=== PATIENT | male | born 1965 | race Caucasian/White ===

== ENCOUNTER 2021-08-31 11:38 | Emergency (ER) | payer BC, SELFPAY ==
[2021-08-31 12:00] VITALS: BP 113/73; PULSE 82; RESP 18; TEMP 36.1; O2SAT 98; BMI 31.4
--- NOTE | 2021-08-31 13:00 | CRLHL7_ITS ---
For Patients: As a result of the Century Cures Act, medical imaging exams and procedure reports are released immediately into your electronic medical record. You may view this report before your referring provider. If you have questions, please contact your health care provider. INDICATION: History of subdural. Three days right arm weakness. COMPARISON: CT head 07/19/2021. TECHNIQUE: CT of the head without IV contrast. Coronal and sagittal reconstructions. FINDINGS: Interval postoperative changes of right frontoparietal craniotomy for evacuation of the previously seen right subdural hematoma. No significant residual hematoma identified. Slightly increased size of the left-sided subdural hematoma which measures 15 mm in greatest radial diameter today compared to 10 mm previously. The fluid is predominantly isodense, however there appears to be a trace amount of new hyperdensity over the left parietal convexity suggesting acute bleeding (for example series 8, image 73). There is mass effect with effacement of underlying sulci. No midline shift. No other intraparenchymal hemorrhage or evidence of acute infarct. Mild generalized cerebral and cerebellar volume loss with associated ex vacuo dilation of the lateral ventricles. Orbits and extraocular muscles are symmetric. Mild mucosal thickening in the left maxillary sinus. The paranasal sinuses and mastoid air cells are otherwise clear. No acute fracture identified. Soft tissues are unremarkable. IMPRESSION: : 1. Slightly increased size of the left subdural hematoma which now contains a trace amount of hyperdensity suggestive of acute bleeding. There is mass effect on the underlying sulci. No midline shift. 2. Interval right frontoparietal craniotomy with evacuation of the previously seen right subdural hematoma. No significant residual hematoma identified. 3. Findings discussed with Elizabeth Juarez at 2:43 p.m. on 08/31/2021. Please note that all CT scans at this facility use dose modulation, iterative reconstruction, and/or weight-based dosing when appropriate to reduce radiation dose to as low as reasonably achievable. Dictated by Joan Miller MD @ 08/31/2021 2:47:03 PM (Electronically Signed)
--- NOTE | 2021-08-31 13:01 | ED_ITS ---
HPI - Neuro Symptoms/Deficit General Time Seen by Provider: 12:45 Date Seen: 08/31/21 Chief Complaint: Nausea/Vomiting Stated Complaint: Diastolic blood pressure, nausea Time Seen by Provider: 08/31/21 12:45 Source: patient Mode of arrival: ambulatory Limitations: altered mental status (Unclear if this is acute or chronic.) History of Present Illness HPI Narrative: Jacoby is a very pleasant 56-year-old gentleman who is status post bilateral subdural hematoma with craniotomy who comes to the emergency room in [place] for evaluation regarding right arm weakness, concerns regarding elevated blood pressure and headache. Patient has had COVID and today is day 9. Denies any significant shortness of breath or difficulty breathing. He is here today because he has had 3 days of right arm weakness that started abruptly. This weakness is improving. He also has rather halting speech and I am unable to ascertain if this is something secondary to the recent head injury or if this is something new. Patient states he thinks that his speech is slightly worse but is unsure. He denies any pain at this time and has not been experiencing any chest pain. He has not had fever or chills. He did denies neck pain. Patient states that his diastolic blood pressure has been elevated and this is also of concern to him. He spoke with a telephone triage nurse who told him to come to the emergency room for a possible stroke. He initially did not think that he had a stroke. Greater than 6 weeks ago patient fell and at that time head CT was negative. Six days later he was noted to be worsening and at that time he had bilateral subdural hematoma. At [facility] he was hospitalized in the ICU for an extended period and then discharged to a recovery center, to his sister's house and finally he is now home alone. Onset (ago): day(s) Location: speech and right arm Severity: mild Quality: weak Context: sudden onset On Anticoagulants: No Associated symptoms: denies other symptoms Treatments Prior to Arrival: none Related Data Home Medications Medication Instructions Recorded Confirmed citalopram 40 mg tablet mg 08/31/21 clotrimazole 1 % topical cream applic TOPICAL 08/31/21 (Antifungal (clotrimazole)) doxazosin 2 mg tablet mg 08/31/21 hydralazine 10 mg tablet mg 08/31/21 hydrocortisone 2.5 % topical cream applic TOPICAL 08/31/21 lisinopril 10 mg tablet mg 08/31/21 lisinopril 20 mg tablet mg 08/31/21 lorazepam 0.5 mg tablet mg 08/31/21 methocarbamol 500 mg tablet mg 08/31/21 metoprolol succinate 50 mg mg PO 08/31/21 tablet,extended release 24 hr nirmatrelvir 300 mg (150 mg x tab PO 08/31/21 2)-ritonavir 100 mg tablet (EUA) (Paxlovid 300 mg () ondansetron 4 mg disintegrating mg 08/31/21 tablet pantoprazole 40 mg tablet,delayed mg PO 08/31/21 release rosuvastatin 20 mg tablet mg 08/31/21 sennosides 8.6 mg-docusate sodium PO 08/31/21 50 mg tablet (Senna-S) vitamin E (dl, acetate) 180 mg 08/31/21 (400 unit) capsule Allergies Allergy/AdvReac Type Severity Reaction Status Date / Time atorvastatin [From Lipitor] Allergy Muscle Pain Verified 08/31/21 12:09 tamsulosin Allergy Dizziness Verified 08/31/21 12:09 moa Allergy Headache Uncoded 08/31/21 12:09 Review of Systems Status of ROS: Reports: 10 or more systems reviewed and unremarkable except as noted in History and below Const: Denies: fever, chills or fatigue Eyes: Denies: change in vision or blurry vision ENMT: Denies: throat pain, neck pain or difficulty swallowing Cardio: Denies: chest pain, palpitations, swelling of feet/ankles or shortness of breath with exertion Resp: Denies: shortness of breath, cough or wheezing GI: Denies: abdominal pain, vomiting or difficulty swallowing : Denies: painful urination Musculo: Denies: back pain or neck pain Integ/Breast: Denies: rash Neuro: Reports: headache and weakness in extremities (Right arm); Denies: numbness in extremities Psych: Reports: other (History of autism per sister) Endo: Denies: fatigue Allergy/Immuno: Denies: wheezing PFSH PFSH Social History Smoking Status: Never smoker Do you use any of these nicotine containing products: None Second hand tobacco smoke exposure: No How often do you have a drink containing alcohol: never How often do you have six or more drinks on one occasion: Never AUDIT-C Alcohol total score: 0 Non-prescribed substance use: denies use Exam Const: Vital Signs, click to edit/add: Vital Signs - 24 hr 08/31/21 12:00 08/31/21 15:29 08/31/21 17:11 Temperature 97.0 F L 98.3 F Pulse Rate [Right Radial] 82 63 68 Respiratory Rate 18 16 16 Blood Pressure [Ri ght Upper Arm] 113/73 138/73 143/72 H Pulse Oximetry 98 99 100 Documenting provider has reviewed patient's vital signs: yes Common normals: no apparent distress, oriented x3 and alert Exam limitations: other limitations (Rather halting speech. ) General appearance: cooperative, comfortable and well kempt Orientation/consciousness: Yes awake, Yes oriented to person, Yes oriented to place and Yes oriented to time HENMT: Common normals: normocephalic, head/scalp atraumatic (Healing scab noted on right parietal scalp.) and external ears normal Head and scalp: normocephalic and atraumatic (Healing scab noted on right parietal scalp.) Face and sinus: normal facial exam and face symmetric External ear: external ears normal Mouth: oral and palatal mucosa normal, lip normal and tongue normal Other: Tongue is midline. Eye: Common normals: PERRL, EOMs intact bilaterally and conjunctivae normal General eye: normal appearance of both eyes Conjunctiva: conjunctiva(e) normal Pupil: PERRL Other: Initially patient's EOM was compromise going to the right but I did explain what I was trying to do with having him follow my finger and he was able to do EOM fully. No nystagmus in the extremes of view. Peripheral vision intact. Neck & C-Spine: Common normals: full ROM, no lymphadenopathy and supple General: normal visual inspection Resp: Common normals: normal respiratory effort and clear to auscultation bilaterally Effort & inspection: able to speak in complete sentences (But prefers short bullet statements.) Auscultation: clear to auscultation bilaterally Cardio: Common normals: regular rate and regular rhythm Rate: regular rate Rhythm: regular rhythm GI: Common normals: soft to palpation and non-tender Palpation: soft Back & Pelvis: Common normals: no thoracic nor lumbar tenderness Extremity: Common normals: no pedal edema General: normal exam except as noted Neuro: Karma Coma Scale: document GCS findings Karma coma scale eye opening: Spontaneous (4) [place] coma scale verbal response: Orientated (5) [place] coma scale motor response: Obey commands (6) [place] coma scale total score: 15 Common normals: oriented x3, CN's II-XII intact bilaterally, moves all extremities, no focal motor deficits and no sensory deficits noted Sensorium/orientation: awake, alert, oriented to person, oriented to place and oriented to time Coordination/balance: Romberg test negative Speech: abnormal speech (short sentences) Motor exam: strength 5/5 throughout Pupil exam: Normal pupillary reactivity/response: bilateral Psych: Common normals: thought process normal Appearance: well kempt Activity/motor behavior: appropriate eye contact and psychomotor agitation (Mild) Speech: not slurred Thought process: normal thought process Thought content: normal thought content Attention/concentration: attention grossly intact Memory/cognition: memory grossly intact Insight: insight good Judgement: judgment good Skin: Narrative: Healing wound on right parietal scalp. No evidence of erythema or drainage or infection. Course Course Hospital Course: Patient is noted to have halting speech I do speak to his sister Polly who notes that his speech is normal for him. We will check a head CT, CBC, compre hensive panel and urinalysis. Patient has normal blood pressure today is, is not tachycardic and has normal oxygen saturations. Reevaluation(s) Reevaluation #1: Patient continues to be unchanged at this time. I do inform him about the results of the CT that do show a very small amount of new blood within the left subdural hematoma. No evidence of midline shift or infarction at this time. We are attempting to contact neuro surgery at [facility] after having been called back by Neurology. Reevaluation #2: We were unsuccessful at talking to Neurosurgery after paging them x2. I was able to speak with Dr. Rodriguez, [facility] ED physician. She was able to talk to Neurosurgery on-call who is open to transfer to their facility. This would involve overnight admission for watching and a repeat CT in the morning. Although we do not have Neurosurgery here this is something that we could possibly do but will be up to the patient. I do speak to the patient and he is insistent that he go to [facility]. I spoke with his sister Polly who agrees with this transfer by ground ambulance as well. She does note that Jacoby experiences anxiety and depression. In the past he has been suicidal and is currently followed by Psychology as well as his primary MD Dr. Mayes at the [facility]. She states that he has been depressed because his 2 dogs that he had had with his head injury were aged and had to be put down. They have recently gotten him a new puppy. Currently awaiting call back from Dr. Rodriguez at [facility] for accepting physician. Time: 17:57 Reevaluation #3: Per nursing report, patient symptoms seem to be worsening with some increased stuttering and difficulty with word finding. He is certainly more anxious and did tell me that he is quite scared. Reassurance at this time but we are contacting [facility] to expedite this transfer. Time: 18:09 Additional Reevaluation(s): At this time still awaiting [facility] physician acceptance. ED docs were quite busy and thus we attempted to go through hospitalist for acceptance. Hospitalist feels with the change in mental status that this needs to go Patient has had decrease in speech ability. He is having difficulty with word finding. He is still obeying commands and has equal upper extremity strength. He did attempt to eat and vomited this. At this time we have him back in his room. He is calm and does not seem agitated. Pupils continued to be equal round and reactive. 1813: Had the privilege of speaking with Dr. Pruett ED physician at [facility] who accepts this patient in transfer. Patient will be ground ambulance ALS. We have placed an IV. Vital Signs Vital signs: Initial Vital Signs Temperature 97.0 F L 08/31/21 12:00 Temperature Source Temporal Artery Scan 08/31/21 12:00 Pulse Rate 82 08/31/21 12:00 Respiratory Rate 18 08/31/21 12:00 Blood Pressure 113/73 08/31/21 12:00 Blood Pressure Mean 86 08/31/21 12:00 Blood Pressure Position Sitting 08/31/21 12:00 Pulse Oximetry 98 08/31/21 12:00 Oxygen Delivery Method 08/31/21 12:00 Vital Signs Temperature 97.0 F L 08/31/21 12:00 Pulse Rate 82 08/31/21 12:00 Respiratory Rate 18 08/31/21 12:00 Blood Pressure 113/73 08/31/21 12:00 Pulse Oximetry 98 08/31/21 12:00 Temperature 98.3 F 08/31/21 17:11 Pulse Rate 68 08/31/21 17:11 Respiratory Rate 16 08/31/21 17:11 Blood Pressure 143/72 H 08/31/21 17:11 Pulse Oximetry 100 08/31/21 17:11 MDM - Neuro Symptoms/Deficit MDM Narrative Medical decision making narrative: 1. New bleeding into left subdural hematoma-this is very small but patient has complained of a headache and some right arm weakness past 3 days. I do not note any weakness on exam. He has no change in his visual garner or in his speech according to his sister. Awaiting acceptance from [facility] physician for transfer as patient prefers to go to see his Neurosurgery team. 2. Disposition- Lab Data Labs: Lab Results 08/31/21 08/31/21 08/31/21 Range/Units 13:36 13:36 14:54 WBC 6.00 (4.50-11.00) K/uL RBC 4.37 (4.30-5.90) m/uL Hgb 13.7 (13.5-17.5) gm/dL Hct 39.5 (37.0-53.0) % MCV 90 (80-100) fL MCH 31 (26-34) pg MCHC 35 (32-36) gm/dL RDW Coeff of Muna 12.3 (11.5-15.5) % Plt Count 255 (140-440) K/uL Neut % (Auto) 60.9 (42.0-72.0) % Lymph % (Auto) 23.3 (20-44) % [place] % (Auto) 13.8 H (0.0-11.0) % Eos % (Auto) 0.5 (0.0-7.0) % Baso % (Auto) 0.8 (0.0-3.0) % Neut # (Auto) 3.65 (1.7-7.0) K/uL Lymph # (Auto) 1.40 (0.90-2.90) K/uL [place] # (Auto) 0.80 (0.00-0.90) K/UL Eos # (Auto) 0.03 (0.00-0.50) K/uL Baso # (Auto) 0.05 (0.00-0.30) K/uL Abs Immat Gran (auto) 0.04 (0.00-0.30) K/uL Sodium 131 L (135-149) mmol/L Potassium 4.1 (3.6-5.1) mmol/L Chloride 99 (96-114) mmol/L Carbon Dioxide 25 (20-32) mmol/L BUN 8 (7-30) mg/dL Creatinine 0.7 (0.5-1.5) mg/dL Estimated Creat Clear 124.01 Estimated GFR 107 ml/min Glucose 112 (60-115) mg/dL Calcium 9.4 (8.4-10.6) mg/dL Urine Color Yellow (Yellow) Urine Appearance Clear (Clear) Urine pH 7.0 (5.0-8.5) Ur Specific [place] 1.015 (1.000-1.030) Urine Protein Negative (Negative) Urine Glucose (UA) Negative (Negative) Urine Ketones 1+ A (Negative) Urine Blood Negative (Negative) Urine Nitrite Negative (Negative) Urine Bilirubin Negative (Negative) Urine Urobilinogen 0.2 (0.2-1.0) Ur Leukocyte Esterase Negative (Negative) Discharge Plan Discharge Clinical Impression: 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
--- NOTE | 2021-08-31 13:11 | ED.NURSE ---
Spoke with sister Ploly and gave update at [phone]. Will give her a call about 30 minutes prior to discharge.
[2021-08-31 13:41] LABS: Basophils Absolute Auto 0.05 K/uL (0.00-0.30); Basophils Percent Auto 0.8 % (0.0-3.0); Eosinophils Absolute Auto 0.03 K/uL (0.00-0.50); Eosinophils Percent Auto 0.5 % (0.0-7.0); Hematocrit 39.5 % (37.0-53.0); Hemoglobin* 13.7 gm/dL (13.5-17.5); Immature Granulocytes Abs Auto 0.04 K/uL (0.00-0.30); Lymphocytes Percent Auto 23.3 % (20-44); Mean Corpuscular HGB Conc 35 gm/dL (32-36); Mean Corpuscular Hemoglobin 31 pg (26-34); Mean Corpuscular Volume 90 fL (80-100); Monocytes Percent Auto 13.8 % (0.0-11.0); Neutrophils Absolute Auto 3.65 K/uL (1.7-7.0); Neutrophils Percent Auto 60.9 % (42.0-72.0); Platelet Count* 255 K/uL (140-440); RDW Coefficient of Variation % 12.3 % (11.5-15.5); Red Blood Count 4.37 m/uL (4.30-5.90)
[2021-08-31 13:46] LABS: Slide Review Reflex No
[2021-08-31 13:56] LABS: Chloride* 99 mmol/L (96-114); Potassium* 4.1 mmol/L (3.6-5.1); Sodium* 131 mmol/L (135-149)
[2021-08-31 13:59] LABS: Blood Urea Nitrogen* 8 mg/dL (7-30); Carbon Dioxide* 25 mmol/L (20-32); Creatinine* 0.7 mg/dL (0.5-1.5); Est. Creatinine Clearance* 124.01; Estimated Glomerular Filt Rate 107 ml/min
[2021-08-31 14:00] LABS: Calcium* 9.4 mg/dL (8.4-10.6); Glucose* 112 mg/dL (60-115)
[2021-08-31 15:08] LABS: Appearance Urine Clear (Clear); Bilirubin Urine Negative (Negative); Blood Urine Negative (Negative); Color Urine Yellow (Yellow); Glucose Urine Negative (Negative); Ketones Urine 1+ (Negative); Leukocyte Esterase Urine Negative (Negative); Nitrite Urine Negative (Negative); Protein Urine Negative (Negative); Specific Gravity Urine 1.015 (1.000-1.030); Urobilinogen Urine 0.2 (0.2-1.0)
[2021-08-31 15:29] VITALS: BP 138/73; PULSE 63; RESP 16; O2SAT 99
--- NOTE | 2021-08-31 16:09 | ED.NURSE ---
up dated patient on waiting for a neurosurg consult. then will go talk with patient about the findings of the results
[2021-08-31 17:11] VITALS: BP 143/72; PULSE 68; RESP 16; TEMP 36.8; O2SAT 100
--- NOTE | 2021-08-31 18:04 | ED.NURSE ---
Patient having difficulty finding words. Keeps repeating i want to go...I want to go... Is obviously frustrated but unable to communicate need. MD notified of neurologic change.
--- NOTE | 2021-08-31 18:07 | ED.NURSE ---
updated Dr. Juarez in the change with patient having difficulty with word finding and repeating self. patient was vomiting in the food. coughing and taken the food away from patient. started #20 Jelco as a saline lock in the left forearm. Dr. Juarez is talking to patient also. calling [facility] to talk with hospitalist.
--- NOTE | 2021-08-31 19:05 | ED.NURSE ---
Patient moved independently to EMS cart. On gurney patient had episode of emesis. Order for zofran obtained and administered prior to departure.
[2021-08-31] MEDS: ONDANSETRON 2 MG/ML inj 4 MG IVP (19:53)
--- NOTE | 2021-08-31 19:57 | ED.NURSE ---
Called sister Polly and gave update on patient status and transfer time.
== END 2021-08-31 19:05 | disposition short-term general hospital (02) ==
PROVIDERS: Emergency Provider Family Medicine; PCP Family Medicine
DX: S06.5X9D Traumatic subdural hemorrhage with loss of consciousness of unspecified duration, subsequent encounter (principal); R47.02 Dysphasia
CPT/HCPCS: 36415; 70450; 80048; 81003; 85025; 96374; 99284; 99285; J2405

== ENCOUNTER 2021-08-31 19:01 | Outpatient (CLI) | payer BC, SELFPAY | END 2021-08-31 19:02 | disposition home or self-care (01) | LOC: AMB 09-07 20:00 | PROVIDERS: PCP Family Medicine; Visit Provider Emergency Medicine Emergency Medical Services | DX: I61.9 Nontraumatic intracerebral hemorrhage, unspecified (principal); R41.82 Altered mental status, unspecified; R53.1 Weakness | CPT/HCPCS: A0425; A0427 ==

== ENCOUNTER 2022-01-26 13:00 | Outpatient (RCR) | payer BC, SELFPAY | END 2022-02-14 16:52 | disposition home or self-care (01) | PROVIDERS: PCP Family Medicine; Visit Provider Family Medicine | DX: R26.81 Unsteadiness on feet (principal); Z51.89 Encounter for other specified aftercare | CPT/HCPCS: 97110; 97162; 97530 ==

== ENCOUNTER 2022-04-06 02:22 | Outpatient (CLI) | payer BC, SELFPAY | END 2022-04-06 02:23 | disposition home or self-care (01) | PROVIDERS: PCP Family Medicine; Visit Provider Family Medicine | DX: T68.XXXA Hypothermia, initial encounter (principal); X31.XXXA Exposure to excessive natural cold, initial encounter | CPT/HCPCS: A0425; A0427 ==

== ENCOUNTER 2022-04-06 02:40 | Emergency (ER) | payer BC, SELFPAY ==
[2022-04-06 02:49] VITALS: BP 175/101; PULSE 87; RESP 18; TEMP 36.4; O2SAT 98; BMI 39.7
[2022-04-06 02:57] VITALS: BP 175/89; PULSE 82; RESP 16; O2SAT 97; O2SAT 98
[2022-04-06 03:02] VITALS: BP 153/93; PULSE 81; RESP 16; O2SAT 99
[2022-04-06 03:17] VITALS: BP 141/90; PULSE 89; RESP 16; O2SAT 100
[2022-04-06 03:32] VITALS: BP 153/83; PULSE 85; RESP 16; O2SAT 99
--- NOTE | 2022-04-06 05:27 | ED.GENADULT ---
HPI - General Adult General Chief complaint: Fall/Minor Trauma Stated complaint: Cold Exposure Time Seen by Provider: 04/06/22 02:48 History of Present Illness HPI narrative: 56-year-old man presenting to the emergency department via EMS after cold exposure. 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 He had been up to let 1 dog in and the other out I believe and somehow the door got locked behind him. Was wearing a sweatshirt added shorts though he describes this as underwear, socks and slippers. Went over to the neighbor and unfortunately slipped in the driveway injuring his left shoulder and knees in this fall. He has been able to ambulate though without difficulty after scooting on his back down the neighbor strict I see driveway. He did scrape his knees. He notes also that a finger was bleeding he thinks. Does have a history of subdural hematoma requiring evacuation last year. Does not believe he hit his head. There was no loss of consciousness. Not complaining of any neck or back pain. Ultimately ambulated he thinks up to a mile to the [employer] where was able to get help. Later does report that there is some numbness in the distal 3rd 4th and 5th fingers of his left hand. Related Data Home Medications Medication Instructions Recorded Confirmed citalopram 40 mg tablet 40 mg PO DAILY 08/31/21 04/06/22 lisinopril 10 mg tablet 10 mg PO BID 08/31/21 04/06/22 pantoprazole 40 mg tablet,delayed 40 mg PO DAILY 08/31/21 04/06/22 release rosuvastatin 20 mg tablet 20 mg PO HS 08/31/21 04/06/22 gabapentin 100 mg capsule 100 mg PO BID 04/06/22 04/06/22 levetiracetam 750 mg tablet 750 mg PO Q12H 04/06/22 04/06/22 (Keppra) Allergies Allergy/AdvReac Type Severity Reaction Status Date / Time atorvastatin [From Lipitor] Allergy Mild Muscle Pain Verified 04/06/22 03:10 tamsulosin Allergy Mild Dizziness Verified 04/06/22 03:10 aspirin AdvReac Intermediate s/p Verified 04/06/22 03:10 subdural hematoma imipramine AdvReac Mild Headache & Verified 04/06/22 03:10 GERD omeprazole AdvReac Mild Mood Verified 04/06/22 03:10 Distrubances moa Allergy Mild Headache Uncoded 04/06/22 02:53 Review of Systems Status of ROS: Reports: 6 or more systems reviewed and unremarkable except as noted in History and below [facility] Medical History Adjustment disorder with depressed mood Anxiety BPH (benign prostatic hyperplasia) Concussion without loss of consciousness GERD (gastroesophageal reflux disease) Hypertension Mixed hyperlipidemia Obesity CHARAN (obstructive sleep apnea) Palpitations Seizure disorder, focal motor Subacute subdural hematoma Surgical History History of colonoscopy History of craniotomy History of hernia repair History of tonsillectomy History of tympanoplasty Social History Smoking Status: Never smoker Do you use any of these nicotine containing products: None Second hand tobacco smoke exposure: No How often do you have a drink containing alcohol: never How often do you have six or more drinks on one occasion: Never AUDIT-C Alcohol total score: 0 Non-prescribed substance use: denies use Exam Narrative: Exam Narrative: Pleasant of good energy. Cranial nerves 2-12 look to be intact. Affected speech as I recall with prior care of this patient. Head does not look to be acutely traumatic. Postoperative/surgical scar. Neck is supple nontender. Back nontender. He has good range of motion at her shoulders. Did demonstrate some soreness in the upper deltoid on the left and this is reproducible little bit here. Has good strength to resisted internal external rotation about the shoulder. There is no clavicular or AC joint area pain. Neer's is intact and not painful. Most discomfort is with empty can testing. Strength remains. Heart with a regular rate and rhythm. Abdomen is overweight soft and nontender. Moving all extremities really without difficulty. He is well perfused. Both hands are pink/red and increasingly warm. The fingers as mentioned above are little puffy soft redder. There begins to appear a subtle pallor in the pad of the 4th left finger in particular on re-examination. A Band-Aid on the distal left index finger. No active bleeding appreciated. Both knees are with faint erythema anteriorly. No effusion/swelling appreciated. There is an abrasion mild on the anterior right knee with some dried blood distal. No active bleeding. Const: Vital Signs, click to edit/add: Vital Signs - 24 hr 04/06/22 02:49 04/06/22 02:57 04/06/22 02:57 Temperature 97.6 F Pulse Rate 82 Pulse Rate [Right Pulse Oximeter] 87 Respiratory Rate 18 16 Blood Pressure 175/89 H Blood Pressure [Ri ght Upper Arm] 175/101 H Pulse Oximetry 98 98 97 Oxygen Delivery Me thod Room Air 04/06/22 03:02 04/06/22 03:17 04/06/22 03:32 Temperature Pulse Rate 81 89 85 Pulse Rate [Right Pulse Oximeter] Respiratory Rate 16 16 16 Blood Pressure 153/93 H 141/90 H 153/83 H Blood Pressure [Ri ght Upper Arm] Pulse Oximetry 99 100 99 Oxygen Delivery Me thod Documenting provider has reviewed patient's vital signs: yes Course Vital Signs Vital signs: Initial Vital Signs Temperature 97.6 F 04/06/22 02:49 Temperature Source Temporal Artery Scan 04/06/22 02:49 Pulse Rate 87 04/06/22 02:49 Respiratory Rate 18 04/06/22 02:49 Blood Pressure 175/101 H 04/06/22 02:49 Blood Pressure Mean 125 04/06/22 02:49 Blood Pressure Position Supine 04/06/22 02:49 Pulse Oximetry 98 04/06/22 02:49 Oxygen Delivery Method 04/06/22 02:49 Vital Signs Temperature 97.6 F 04/06/22 02:49 Pulse Rate 87 04/06/22 02:49 Respiratory Rate 18 04/06/22 02:49 Blood Pressure 175/101 H 04/06/22 02:49 Pulse Oximetry 98 04/06/22 02:49 Oxygen Delivery Method 04/06/22 02:49 Temperature 97.6 F 04/06/22 02:49 Pulse Rate 85 04/06/22 03:32 Respiratory Rate 16 04/06/22 03:32 Blood Pressure 153/83 H 04/06/22 03:32 Pulse Oximetry 99 04/06/22 03:32 Oxygen Delivery Method 04/06/22 02:49 Medical Decision Making MDM Narrative Medical decision making narrative: Mr. George was shivering on arrival. Temperature though around 98?. Was placed in [employer]. Ultimately requesting departure. Not think that there is any need for imaging given physical exam at this point. I would reassess in 7-10 days particularly the left shoulder if does not seem to be improving. Am most concerned about frostbite, might be more cullen nip at this point, on his hands/fingers. Monitor for blister formation. Medical Records Medical records reviewed: Yes I reviewed the patient's medical records Discharge Plan Discharge Clinical Impression: Frostbite, Exposure to environmental cold, Left shoulder strain Patient Disposition: Home w/ Parent or Adult Condition: Improved Additional Instructions: If these areas that I think are frostbitten do blister, try to leave the blister on so that the skin can heal underneath. Once blister pops you can trim it away and protect with antibiotic ointment and bandages. You might place aloe gel onto these areas a few times daily over the next few days. As far as your shoulder goes, see handout for treatment and exercises. And a minimum I think you strained your shoulder; maybe your supraspinatus muscle. Follow-up in a week if not improving. Prescriptions: No Action citalopram 40 mg tablet 40 mg PO DAILY pantoprazole 40 mg tablet,delayed release (DR/EC) 40 mg PO DAILY lisinopril 10 mg tablet 10 mg PO BID rosuvastatin 20 mg tablet 20 mg PO HS gabapentin 100 mg capsule 100 mg PO BID levetiracetam [Keppra] 750 mg tablet 750 mg PO Q12H Follow Up/Referrals: Usman Mayes MD [Primary Care Provider] - Stand Alone Forms: [employer] Info Instructions
== END 2022-04-06 04:08 | disposition home or self-care (01) ==
PROVIDERS: Emergency Provider Family Medicine; PCP Family Medicine
DX: T33.90XA Superficial frostbite of unspecified sites, initial encounter (principal); S46.912A Strain of unspecified muscle, fascia and tendon at shoulder and upper arm level, left arm, initial encounter; X31.XXXA Exposure to excessive natural cold, initial encounter
CPT/HCPCS: 94761; 99283; 99284

== ENCOUNTER 2022-06-05 15:15 | Outpatient (RCR) | payer BC, SELFPAY | END 2022-09-06 23:59 | disposition home or self-care (01) | PROVIDERS: PCP Family Medicine; Visit Provider Family Medicine | DX: M25.512 Pain in left shoulder (principal); Z51.89 Encounter for other specified aftercare | CPT/HCPCS: 97110; 97140; 97162 ==

== ENCOUNTER 2023-04-17 10:58 | Outpatient (CLI) | payer BC, SELFPAY ==
--- NOTE | 2023-04-17 11:15 | FL_ITS ---
Patient: RANDA PAYNE Facility:?[facility] Patient ID:?[id number] Site Patient ID:?[id number]. Site :?[id number] Study:?XRay-Chest/Abd Left UGI W/AIR (DR REEVES TO READ)-04/17/2023 11:59:53 AM Ordering Physician:CHRISSY Final Report: Technique: Double-contrast upper GI performed after the uneventful administration of effervescent crystals and thick barium followed by thin barium. Fluoroscopy time 1 minute 32 seconds. Indication: Gastroesophageal reflux disease Comparison: None. Findings: Swallowing mechanism: Normal. Esophageal motility: Decreased. Gastroesophageal reflux: Mild spontaneous reflux to the proximal esophagus. Hernia: Small hiatal hernia. Esophagus, stomach and duodenal bulb mucosa: Normal mucosa. No stricture or mass. Impression: Small sliding hiatal hernia with spontaneous reflux and decreased motility. Remainder unremarkable. Dictated by Cesar Reeves MD @ 04/17/2023 12:54:12 PM Signed by:?Csear Reeves MD @04/17/2023 12:54:12 PM (Electronic Signature)
== END 2023-04-17 10:59 | disposition home or self-care (01) ==
LOC: RAD 10:59
PROVIDERS: PCP Family Medicine; Visit Provider Internal Medicine Gastroenterology
DX: K21.9 Gastro-esophageal reflux disease without esophagitis (principal); K44.9 Diaphragmatic hernia without obstruction or gangrene
CPT/HCPCS: 74246

== ENCOUNTER 2023-04-23 14:30 | Outpatient (RCR) | payer BC, SELFPAY | END 2023-06-13 10:41 | disposition home or self-care (01) | PROVIDERS: PCP Family Medicine; Visit Provider Family Medicine | DX: M75.31 Calcific tendinitis of right shoulder (principal); M75.41 Impingement syndrome of right shoulder; M25.511 Pain in right shoulder; G89.29 Other chronic pain; Z74.09 Other reduced mobility; R29.898 Other symptoms and signs involving the musculoskeletal system; Z51.89 Encounter for other specified aftercare | CPT/HCPCS: 97110; 97161 ==

== ENCOUNTER 2023-08-04 09:41 | Emergency (ER) | payer BC, SELFPAY ==
[2023-08-04 09:53] VITALS: BP 144/78; PULSE 78; RESP 18; TEMP 35.9; O2SAT 95; BMI 39.7
--- NOTE | 2023-08-04 10:10 | ED_ITS ---
HPI - Fall General Time Seen by Provider: 10:10 Date Seen: 08/04/23 Chief Complaint: Fall/Minor Trauma Stated Complaint: fall, R shoulder pain Time Seen by Provider: 08/04/23 09:52 Source: patient and RN notes reviewed Mode of arrival: ambulatory Limitations: no limitations History of Present Illness HPI Narrative: This 58-year-old male is coming in with ongoing posterior chest wall in rib pain after a fall. He fell on his ramp going up into the shed while putting his lawn more away. He has a would ramp, was slippery from the recent rain in being wet. He landed more on his right side and back. He does not believe that he hit his head but had a slight headache afterwards. He proceeded to go shopping, noted ongoing right sided chest wall and possible rib pain. He decided to come into the ER to be evaluated. No headache now but there is still pain on that right posterior chest wall. He does not take any aspirin or NSAIDs due to history of a subdural hematoma. Patient had a bilateral subdural hematoma in 2021, sounds as if he had a delayed presentation of his bleed. He ended up at [facility]. Weeks later after he was discharged, had COVID and there was a noted small expansion of 1 of the subdural hematomas. He was transferred back to [facility]. He otherwise is at his baseline, notes no difficulty breathing, no shortness of breath, no significant pain with breathing. No chest pain internally. No abdominal pain. He denies any numbness or tingling in his arms, is able to mobilize his arms although moving the right arm does hurt in the right back and shoulder blade area. complaint: fall Related Data Home Medications ?Medication ?Instructions ?Recorded ?Confirmed citalopram 40 mg tablet 40 mg PO DAILY 08/31/21 01/14/23 lisinopril 10 mg tablet 10 mg PO BID 08/31/21 01/14/23 pantoprazole 40 mg tablet,delayed 40 mg PO DAILY 08/31/21 01/14/23 release rosuvastatin 20 mg tablet 20 mg PO HS 08/31/21 01/14/23 levetiracetam 750 mg tablet 750 mg PO Q12H 04/06/22 01/14/23 (Keppra) rimegepant 75 mg disintegrating mg PO 01/14/23 01/14/23 tablet (Nurtec ODT) Allergies Allergy/AdvReac Type Severity Reaction Status Date / Time atorvastatin [From Lipitor] Allergy Mild Muscle Pain Verified 01/14/23 12:54 tamsulosin Allergy Mild Dizziness Verified 01/14/23 12:54 topiramate [From Topamax] Allergy Verified 01/14/23 12:54 aspirin AdvReac Intermediate s/p Verified 01/14/23 12:54 subdural hematoma imipramine AdvReac Mild Headache & Verified 01/14/23 12:54 GERD omeprazole AdvReac Mild Mood Verified 01/14/23 12:54 Distrubances moa Allergy Mild Headache Uncoded 01/14/23 12:54 Review of Systems Status of ROS: Reports: 6 or more systems reviewed and unremarkable except as noted in History and below [facility] Medical History Hypertension ?I10 - Essential (primary) hypertension (ICD-10) Subacute subdural hematoma ?S06.5XAA - Traumatic subdural hemorrhage with loss of consciousness status unknown, initial encounter (ICD-10) Seizure disorder, focal motor ?G40.109 - Localization-related (focal) (partial) symptomatic epilepsy and epileptic syndromes with simple partial seizures, not intractable, without status epilepticus (ICD-10) Palpitations ?R00.2 - Palpitations (ICD-10) CHARAN (obstructive sleep apnea) ?G47.33 - Obstructive sleep apnea (adult) (pediatric) (ICD-10) Obesity ?E66.9 - Obesity, unspecified (ICD-10) Mixed hyperlipidemia ?E78.2 - Mixed hyperlipidemia (ICD-10) GERD (gastroesophageal reflux disease) ?K21.9 - Gastro-esophageal reflux disease without esophagitis (ICD-10) Concussion without loss of consciousness ?S06.0X0A - Concussion without loss of consciousness, initial encounter (ICD- 10) BPH (benign prostatic hyperplasia) ?N40.0 - Benign prostatic hyperplasia without lower urinary tract symptoms (ICD-10) Anxiety ?F41.9 - Anxiety disorder, unspecified (ICD-10) Adjustment disorder with depressed mood ?F43.21 - Adjustment disorder with depressed mood (ICD-10) Surgical History History of tympanoplasty ?Z98.890 - Other specified postprocedural states (ICD-10) History of tonsillectomy ?Z90.89 - Acquired absence of other organs (ICD-10) History of craniotomy ?Z98.890 - Other specified postprocedural states (ICD-10) History of hernia repair ?Z98.890 - Other specified postprocedural states (ICD-10) ?Z87.19 - Personal history of other diseases of the digestive system (ICD-10) History of colonoscopy ?Z98.890 - Other specified postprocedural states (ICD-10) Social History Smoking Status: Never smoker Do you use any of these nicotine containing products: None Second hand tobacco smoke exposure: No How often do you have a drink containing alcohol: never How often do you have six or more drinks on one occasion: Never AUDIT-C Alcohol total score: 0 Non-prescribed substance use: denies use service: No Exam Const: Vital Signs, click to edit/add: Vital Signs - 24 hr 08/04/23 09:53 Temperature 96.7 F L Pulse Rate [Pulse Oximeter] 78 Respiratory Rate 18 Blood Pressure [Le ft Upper Arm] 144/78 H Pulse Oximetry 95 Oxygen Delivery Me thod Room Air Randa is a 58-year-old male that is ambulatory into the ED of his own accord. He has a bit of an aberrant speech pattern which has been previously described is halting. I do think that describes it quite well. His speech is crisp insists think it but there are pauses in between. He has prior well-healed craniotomy scars but otherwise scalp is without any acute visible traumatic change. Face atraumatic, symmetrical facial function, sclera clear, conjugate gaze, pupils look equal and round. No midline tenderness over his neck or the entirety of his spine. His neck is supple, no adenopathy or masses, no tenderness elsewhere. Lungs are clear, good air entry, no wheezing or crackles, no tachypnea. CV regular rate and rhythm, no murmur, normal S1-S2, no S3-S4. Abdomen is obese but soft. He has no tenderness over his clavicles, AC joint or glenohumeral joint. He can fully mobilize his shoulders, full arc of abduction and normal range of motion at the shoulders. Range of motion of the right shoulder does localize some pain into this right posterior chest wall but not within the shoulder itself. Seems to have normal symmetrical arm sensation and function, no traumatic change noted in the arms. Inspection of his back reveals no traumatic change such as ecchymosis or abrasion. He has some mild tenderness over the inferior aspect of the scapula into that right posterolateral chest wall. There is no crepitus or step-off, note no tissue swelling. Abdomen is obese but nontender. Documenting provider has reviewed patient's vital signs: yes Course Course ED Course: Discussed pain management with patient, he has not taken anything. Will give him Tylenol which is what he typically would take. I have ordered a 1000 mg. We will proceed with a head CT on him given his symptoms right after the fall and he is noted to have traumatic brain injury. Want to ensure no complications bleeding. Will also get chest imaging in with chest x-ray and right rib views. He is currently hemodynamically stable, not hypoxic. Reevaluation(s) Time of Reevaluation #1: 11:14 Reevaluation #1: Reviewed negative CT and x-ray images. Patient is stable, has no further concerns. Will discharge to home. Vital Signs Vital signs: Initial Vital Signs Temperature 96.7 F L 08/04/23 09:53 Temperature Source Temporal Artery Scan 08/04/23 09:53 Pulse Rate 78 08/04/23 09:53 Pulse Rhythm Regular 08/04/23 09:53 Respiratory Rate 18 08/04/23 09:53 Blood Pressure 144/78 H 08/04/23 09:53 Blood Pressure Mean 100 08/04/23 09:53 Blood Pressure Position Supine 08/04/23 09:53 Pulse Oximetry 95 08/04/23 09:53 Oxygen Delivery Method Room Air 08/04/23 09:53 Vital Signs Temperature 96.7 F L 08/04/23 09:53 Pulse Rate 78 08/04/23 09:53 Respiratory Rate 18 08/04/23 09:53 Blood Pressure 144/78 H 08/04/23 09:53 Pulse Oximetry 95 08/04/23 09:53 Oxygen Delivery Method Room Air 08/04/23 09:53 Temperature 96.7 F L 06/16/24 09:53 Pulse Rate 78 08/04/23 09:53 Respiratory Rate 18 08/04/23 09:53 Blood Pressure 144/78 H 08/04/23 09:53 Pulse Oximetry 95 08/04/23 09:53 Oxygen Delivery Method Room Air 08/04/23 09:53 Medications Administered Medications: Discontinued Medications Generic Name Dose Route Start Last Admin Trade Name Erikq PRN Reason Stop Dose Admin Acetaminophen 1,000 mg 08/04/23 10:18 08/04/23 10:25 Acetaminophen 500 Mg Tablet PO 08/04/23 10:19 1,000 mg ONCE ONE Administration MDM - Fall Imaging Data CT scan - head: Attestation: I have reviewed the pertinent imaging results. Radiologist's impression: Patient: RANDA PAYNE Facility:?[facility] Patient ID:?[id number] Site Patient ID:?[id number]. Site :?1965 Study:?CT-Head WITHOUT-08/04/2023 10:40:33 AM Ordering Physician:?Timothy Smith Final Report: Indication: FALL, DAHL, HX SDH Technique: CT of the head without contrast. Coronal and sagittal reformats. Bone and soft tissue windows. Comparison: CT 08/31/2021 Findings: Chronic postop changes of right frontal craniotomy. Complete resolution of the left hemispheric subdural hematoma. No acute intracranial hemorrhage or extra-axial collection. No evidence of acute cortical infarction. No mass effect or midline shift. Mild to moderate parenchymal volume loss, unchanged. There is normal gonzalez and white matter differentiation. The pituitary gland, optic chiasm, pineal gland, and cerebellar tonsils are unremarkable. Partially empty sella. The orbital contents are normal. No calvarial fractures. No lytic or sclerotic osseous lesions within the calvarium or skull base. Scalp and other imaged soft tissue structures are normal. Mastoid air cells are clear. Paranasal sinuses are well aerated. Impression: No acute intracranial abnormality. Complete resolution of the left hemispheric subdural hematoma. Please note that all CT scans at this facility use dose modulation, iterative reconstruction, and/or weight-based dosing when appropriate to reduce radiation dose to as low as reasonably achievable. Dictated by Cesar Browne MD @ 08/04/2023 10:47:40 AM (Electronic Signature) Chest x-ray: Attestation: I have reviewed the pertinent imaging results. My impression: A my preliminary review of these chest images, do not see any acute fracture or acute pathology. Radiologist's impression: Patient: RANDA PAYNE Facility:?[facility] Patient ID:?[id number] Site Patient ID:?[id number]. Site :?1965 Study:?XRay-Chest 2 VIEW RIBS W/ 1V CXR-08/04/2023 10:38:56 AM Ordering Physician:Akbar Smith Final Report: INDICATION: Fell; posterior chest wall pain. COMPARISON: None. TECHNIQUE: Six view study with chest and right rib cage detail. FINDINGS: No fracture involving the right ribcage. No pneumothorax or pleural effusion. Normal size cardiac silhouette. IMPRESSION: Negative chest and right rib cage detail. Dictated by Karrie Dhillon MD @ 08/04/2023 11:11:51 AM (Electronic Signature) Discharge Plan Discharge Clinical Impression: Fall, Acute chest wall pain Patient Disposition: Home, Self-Care Condition: Stable Instructions: Fall Prevention (ED), Chest Wall Pain (ED) Additional Instructions: Can use Tylenol 1000 mg up to 3 times a day as needed for pain control. Can try some ice to your right chest wall. Activity as tolerated. If you are not improving over the next week, do recommend re-evaluation in clinic. If at any point you have severe worsening, develop any difficulty breathing or associated respiratory issues, do recommend return to the ER. Activity Level: Activity as Tolerated Prescriptions: No Action Nurtec ODT 75 mg tablet,disintegrating PO citalopram 40 mg tablet 40 mg PO DAILY pantoprazole 40 mg tablet,delayed release (DR/EC) 40 mg PO DAILY lisinopril 10 mg tablet 10 mg PO BID rosuvastatin 20 mg tablet 20 mg PO HS levetiracetam [Keppra] 750 mg tablet 750 mg PO Q12H Follow Up/Referrals: Usman Mayes MD [Primary Care Provider] - Stand Alone Forms: [employer] Info Instructions
--- NOTE | 2023-08-04 10:18 | CRLHL7_ITS ---
For Patients: As a result of the Cures Act, medical imaging exams and procedure reports are released immediately into your electronic medical record. You may view this report before your referring provider. If you have questions, please contact your health care provider. INDICATION: Fell; posterior chest wall pain. COMPARISON: None. TECHNIQUE: Six view study with chest and right rib cage detail. FINDINGS: No fracture involving the right ribcage. No pneumothorax or pleural effusion. Normal size cardiac silhouette. IMPRESSION: Negative chest and right rib cage detail. Dictated by Karrie Dhillon MD @ 08/04/2023 11:11:51 AM (Electronically Signed)
--- NOTE | 2023-08-04 10:18 | CRLHL7_ITS ---
For Patients: As a result of the Century Cures Act, medical imaging exams and procedure reports are released immediately into your electronic medical record. You may view this report before your referring provider. If you have questions, please contact your health care provider. Indication: FALL, DAHL, HX SDH Technique: CT of the head without contrast. Coronal and sagittal reformats. Bone and soft tissue windows. Comparison: CT 08/31/2021 Findings: Chronic postop changes of right frontal craniotomy. Complete resolution of the left hemispheric subdural hematoma. No acute intracranial hemorrhage or extra-axial collection. No evidence of acute cortical infarction. No mass effect or midline shift. Mild to moderate parenchymal volume loss, unchanged. There is normal gonzalez and white matter differentiation. The pituitary gland, optic chiasm, pineal gland, and cerebellar tonsils are unremarkable. Partially empty sella. The orbital contents are normal. No calvarial fractures. No lytic or sclerotic osseous lesions within the calvarium or skull base. Scalp and other imaged soft tissue structures are normal. Mastoid air cells are clear. Paranasal sinuses are well aerated. Impression: No acute intracranial abnormality. Complete resolution of the left hemispheric subdural hematoma. Please note that all CT scans at this facility use dose modulation, iterative reconstruction, and/or weight-based dosing when appropriate to reduce radiation dose to as low as reasonably achievable. Dictated by Cesar Browne MD @ 08/04/2023 10:47:40 AM (Electronically Signed)
[2023-08-04] MEDS: ACETAMINOPHEN 500 MG TABLET 1000 MG PO (10:25)
== END 2023-08-04 11:23 | disposition home or self-care (01) ==
PROVIDERS: Emergency Provider Family Medicine; PCP Family Medicine
DX: R07.89 Other chest pain (principal); W19.XXXA Unspecified fall, initial encounter
CPT/HCPCS: 70450; 71101; 99283; 99284; 99285; A9270

== ENCOUNTER 2023-12-27 03:05 | Emergency (ER) | payer BC, SELFPAY ==
[2023-12-27 03:15] VITALS: BP 153/93; PULSE 79; RESP 20; TEMP 36.9; O2SAT 99; BMI 40.2
--- NOTE | 2023-12-27 03:23 | ED.GENADULT ---
HPI - General Adult General Chief complaint: Hypertension Stated complaint: high blood pressure Time Seen by Provider: 12/27/23 03:22 History of Present Illness HPI narrative: Patient is a 58-year-old gentleman who has been feeling stressed today. He has history of traumatic brain injury as well as chronic anxiety and depression. He was upset tonight in size take his blood pressure found to be greater than 150/90. Patient took extra lisinopril 5 mg and came immediately to the emergency room with blood pressure currently is 130/90. He has had no chest pain no shortness a breath orthopnea no PND no nausea no vomiting patient is otherwise feeling well with the exception of the increased stress. He is not suicidal or homicidal at this time. Related Data Home Medications ?Medication ?Instructions ?Recorded ?Confirmed citalopram 40 mg tablet 40 mg PO DAILY 08/31/21 11/18/23 lisinopril 10 mg tablet 10 mg PO BID 08/31/21 11/18/23 pantoprazole 40 mg tablet,delayed 40 mg PO DAILY 08/31/21 11/18/23 release rosuvastatin 20 mg tablet 20 mg PO HS 08/31/21 11/18/23 levetiracetam 750 mg tablet 750 mg PO Q12H 04/06/22 11/18/23 (Keppra) rimegepant 75 mg disintegrating mg PO 01/14/23 11/18/23 tablet (Nurtec ODT) Allergies Allergy/AdvReac Type Severity Reaction Status Date / Time atorvastatin (From Lipitor) Allergy Mild Muscle Pain Verified 11/18/23 16:25 tamsulosin Allergy Mild Dizziness Verified 11/18/23 16:25 topiramate (From Topamax) Allergy Verified 11/18/23 16:25 aspirin AdvReac Intermediate s/p Verified 11/18/23 16:25 subdural hematoma imipramine AdvReac Mild Headache & Verified 11/18/23 16:25 GERD omeprazole AdvReac Mild Mood Verified 11/18/23 16:25 Distrubances moa Allergy Mild Headache Uncoded 11/18/23 16:25 Review of Systems Status of ROS: Reports: 10 or more systems reviewed and unremarkable except as noted in History and below [facility] Medical History Hypertension ?I10 - Essential (primary) hypertension (ICD-10) Subacute subdural hematoma ?S06.5XAA - Traumatic subdural hemorrhage with loss of consciousness status unknown, initial encounter (ICD-10) Seizure disorder, focal motor ?G40.109 - Localization-related (focal) (partial) symptomatic epilepsy and epileptic syndromes with simple partial seizures, not intractable, without status epilepticus (ICD-10) Palpitations ?R00.2 - Palpitations (ICD-10) CHARAN (obstructive sleep apnea) ?G47.33 - Obstructive sleep apnea (adult) (pediatric) (ICD-10) Obesity ?E66.9 - Obesity, unspecified (ICD-10) Mixed hyperlipidemia ?E78.2 - Mixed hyperlipidemia (ICD-10) GERD (gastroesophageal reflux disease) ?K21.9 - Gastro-esophageal reflux disease without esophagitis (ICD-10) Concussion without loss of consciousness ?S06.0X0A - Concussion without loss of consciousness, initial encounter (ICD-10) BPH (benign prostatic hyperplasia) ?N40.0 - Benign prostatic hyperplasia without lower urinary tract symptoms (ICD-10) Anxiety ?F41.9 - Anxiety disorder, unspecified (ICD-10) Adjustment disorder with depressed mood ?F43.21 - Adjustment disorder with depressed mood (ICD-10) Surgical History History of tympanoplasty ?Z98.890 - Other specified postprocedural states (ICD-10) History of tonsillectomy ?Z90.89 - Acquired absence of other organs (ICD-10) History of craniotomy ?Z98.890 - Other specified postprocedural states (ICD-10) History of hernia repair ?Z98.890 - Other specified postprocedural states (ICD-10) ?Z87.19 - Personal history of other diseases of the digestive system (ICD-10) History of colonoscopy ?Z98.890 - Other specified postprocedural states (ICD-10) Social History Smoking Status: Never smoker Do you use any of these nicotine containing products: None Second hand tobacco smoke exposure: No How often do you have a drink containing alcohol: never How often do you have six or more drinks on one occasion: Never AUDIT-C Alcohol total score: 0 Non-prescribed substance use: denies use service: No Exam Narrative: Exam Narrative: EXAM GENERAL: Patient appears comfortable and well. EYES: No scleral icterus. ENT: Tympanic membranes and oropharynx normal. THYROID: no thyroid nodules or thyromegaly. LYMPH: No supraclavicular or cervical lymphadenopathy. SKIN: Visible skin seen during exam normal or with benign process only. EXT: No dependent lower extremity pedal edema. HEART: Regular rate and rhythm with no murmurs, rubs, or gallops. LUNGS: Clear to auscultation bilaterally with no crackles or wheezes. ABD: Soft, non tender, non distended. PSYCH: Good eye contact, speech is not pressured. Const: Vital Signs, click to edit/add: Vital Signs - 24 hr 12/27/23 03:15 Temperature 98.5 F Pulse Rate [Right Pulse Oximeter] 79 Respiratory Rate 20 Blood Pressure [Ri ght Upper Arm] 153/93 H Pulse Oximetry 99 Oxygen Delivery Me thod Room Air Course Course ED Course: Patient seen and examined. Vital Signs Vital signs: Initial Vital Signs Temperature 98.5 F 12/27/23 03:15 Temperature Source Temporal Artery Scan 12/27/23 03:15 Pulse Rate 79 12/27/23 03:15 Respiratory Rate 20 12/27/23 03:15 Blood Pressure 153/93 H 12/27/23 03:15 Blood Pressure Mean 113 H 12/27/23 03:15 Blood Pressure Position Sitting 12/27/23 03:15 Pulse Oximetry 99 12/27/23 03:15 Oxygen Delivery Method Room Air 12/27/23 03:15 Vital Signs Temperature 98.5 F 12/27/23 03:15 Pulse Rate 79 12/27/23 03:15 Respiratory Rate 20 12/27/23 03:15 Blood Pressure 153/93 H 12/27/23 03:15 Pulse Oximetry 99 12/27/23 03:15 Oxygen Delivery Method Room Air 12/27/23 03:15 Temperature 98.5 F 12/27/23 03:15 Pulse Rate 79 12/27/23 03:15 Respiratory Rate 20 12/27/23 03:15 Blood Pressure 153/93 H 12/27/23 03:15 Pulse Oximetry 99 12/27/23 03:15 Oxygen Delivery Method Room Air 12/27/23 03:15 Medical Decision Making [facility] Narrative Medical decision making narrative: Patient presents with elevated blood pressure at home although he did take extra 5 mg of lisinopril. His blood pressure is normal. He has no chest pain shortness a breath orthopnea no PND no changes mental health. I do not believe further intervention is needed. Reassurance is offered. Discharge Plan Discharge Clinical Impression: Hypertension Instructions: Hypertension (ED) Activity Level: No Restrictions Discharge Diet: Regular Prescriptions: No Action Nurtec ODT 75 mg tablet,disintegrating PO citalopram 40 mg tablet 40 mg PO DAILY pantoprazole 40 mg tablet,delayed release (DR/EC) 40 mg PO DAILY lisinopril 10 mg tablet 10 mg PO BID rosuvastatin 20 mg tablet 20 mg PO HS levetiracetam [Keppra] 750 mg tablet 750 mg PO Q12H Follow Up/Referrals: Usman Mayes MD [Primary Care Provider] - Stand Alone Forms: [employer] Info Instructions
--- OUTSIDE RECORDS SUMMARY | 2023-12-27 03:26 | XMS_ITS | Clinical Summary ---
Author Organization [facility] Address [place], [place] [address] Care Team Providers Care Hotel Sales Manager Name Role Phone Usman Mayes MD Primary Care Provider Claire Medrano PsyD, KARAN Unavailable [phone] Anh Lazo NP Unavailable [phone] Юлия Boyle MD Unavailable [phone] Allergies Active Allergy Reactions Criticality Noted Date Comments Aspirin Other - Describe In Comment Field 08/16/2021 After traumatic subdural hematoma advised to never take aspirin. Atorvastatin Other - Describe In Comment Field 03/10/2013 Muscle pain Imipramine Other - Describe In Comment Field 03/10/2013 Headaches and gerd Mirtazapine Other - Describe In Comment Field High 05/23/2022 Patient felt suicidal and his OCD was severe on only 4 days of this Omeprazole Other - Describe In Comment Field 06/15/2015 Mood problems Tamsulosin Dizziness 06/26/2021 Topiramate Other - Describe In Comment Field 03/22/2023 Stomach pain, dizzy. Medications Medication Sig Dispensed Refills Start Date End Date Status durable medical equipment (DME)Indications:Po sterior tibial tendon dysfunction (PTTD) of right lower extremity AFO repairs as needed. 99 mo 2 Each 9 Active clotrimazole (LOTRIMIN) 1 % creamIndications:In tertrigo Apply a thin layer to the affected areas twice daily as needed for flares. 60 g 9 Active hydrocortisone 2.5% creamIndications:Sk in disease, fungal Apply thin layer to affected area twice daily for no more than 2 weeks. 60 g 1 Active ketoconazole 2% topical (NIZORAL) creamIndications:Sk in disease, fungal Apply topically to affected area(s) 2 times daily. 60 g 1 Active xylitoL 550 mg mabtIndications:Dry mouth,Sore throat,CHARAN (obstructive sleep apnea) Apply to the lining of the mouth. 30 Tablet 1 2 Active vitamin e 400 unit capsule Take 400 units by mouth. Active coenzyme q10 100 mg cap Take 100 mg by mouth. Active fish oil-omega-3 fatty acids (Fish OiL) 1,000-340 mg capsule Take 1,000 mg by mouth. Active Multivitamin Cmb No.21-Iron-FA 18-400 mg-mcg tab Take 1 Tablet by mouth once daily. Active clobetasol cream 0.05% (TEMOVATE) 0.05 % creamIndications:Po lymorphic light eruption Apply topically to affected area(s) two times daily. As needed when the rash is flaring/itching 45 g 5 3 Active vitamin E, dl,tocopheryl acet, (Vitamin E, DL, Acetate,) 400 unit capsule 2 Active rosuvastatin (CRESTOR) 20 mg tabletIndications:H yperlipidemia, unspecified hyperlipidemia type Take 1 Tablet (20 mg) by mouth at bedtime. 90 Tablet 3 4 Active alum hydrox-mag carb (GAVISCON EXT STR CHEW) 160-105 mg chewable Chew 2 Tablets by mouth. Active CPAPIndications:CHARAN (obstructive sleep apnea) CPAP machine for home use at pressure 14 cmw, full face mask x1/3month with a full face cushion x1/mo 1 Each 11 4 Active levETIRAcetam (KEPPRA) 750 mg tabletIndications:S eizure disorder (HC) Take 1 Tablet (750 mg) by mouth two times daily. 180 Tablet 3 4 07/12/19 25 Active miscellaneous medical supply miscIndications:Bharath ateral carpal tunnel syndrome As directed. Bilateral wrist splints with thumb, white or harper color (allergy to dark pigment/dyes). 2 unit 1 4 Active triamcinolone (ARISTOCORT; KENALOG) 0.1 % creamIndications:Dy shidrotic eczema,Keratoderma Apply topically to affected area(s) two times daily. 80 g 5 4 Active pantoprazole (PROTONIX) 40 mg delayed-release tabletIndications:G astroesophageal reflux disease, unspecified whether esophagitis present Take 1 Tablet (40 mg) by mouth two times daily before meals. 180 Tablet 3 4 Active HYDROcodone-acetami nophen (5-325 mg/tablet)Indicatio ns:Disorder of bursae and tendons in shoulder region Take 1 Tablet by mouth 3 times daily if needed for Pain. Max acetaminophen dose: 4000 mg in 24 hrs. 24 Tablet 4 Active citalopram (CELEXA) 40 mg tabletIndications:P anic disorder without agoraphobia,Dysthym ia Take 1 Tablet (40 mg) by mouth once daily. 90 Tablet 1 4 Active hydrOXYzine HCL (ATARAX) 25 mg tabletIndications:P anic disorder without agoraphobia,Anxiety TAKE 1/2 TO 1 TABLET BY MOUTH TWICE DAILY NEEDED FOR ANXIETY OR SLEEP 45 Tablet 2 4 Active Nurtec ODT 75 mg orally disintegrating tabletIndications:C hronic nonintractable headache, unspecified headache type Place 75 mg on the tongue once every other day. 16 Tablet 3 4 Active lisinopriL (PRINIVIL; ZESTRIL) 10 mg tabletIndications:E ssential hypertension Take 1 Tablet (10 mg) by mouth once daily. 90 Tablet 3 4 Active methylPREDNISolone (Medrol, Fermín,) 4 mg tabletIndications:C ervical radiculopathy Take by mouth as instructed per packaging. 21 Tablet 4 12/04/19 24 Discontinu ed(*Med complete/R egimen complete/L evel of care change) Active Problems Problem Noted Date Diagnosed Date Autism spectrum disorder 02/19/2023 Borderline intellectual functioning 01/07/2023 Chronic nonintractable headache 06/18/2022 Controlled substance agreement signed 10/10/2021 Overview (10/10/2021): Signed 10/10/2021. Anh Malecha DNP [employer]BR[employer] O[employer]ATOR [employer] Psychiatry Seizure disorder, focal. Dx 08/2021 s/p crani for SDH. 09/05/2021 Subacute subdural hematoma ( HC); DOI 06/24/2021; Rt Craniotomy 07/26/2021. 08/16/2021 Concussion without loss of consciousness; 06/26/19 22 07/14/2021 Lower urinary tract symptoms (LUTS) 06/26/2021 MDD (major depressive disorder), recurrent episo de, mild 09/13/2015 GERD without esophagitis 06/15/2015 Panic disorder without agoraphobia 09/28/2013 Asperger's disorder per history 09/28/2013 Unspecified essential hypertension 03/10/2013 Adjustment disorder with depressed mood 03/10/19 14 Obesity 03/10/2013 Mixed hyperlipidemia 03/10/2013 Impaired fasting glucose 03/10/2013 CHARAN 03/30/2013 AHI-94 03/10/2013 Resolved Problems Problem Noted Date Diagnosed Date Resolved Date Controlled substance agreement signed 06/27/2016 10/30/2021 Overview (06/27/2016): Signed: 10/29/13- Taty Twito / psychiatry Routine adult health maintenance 06/19/2016 03/06/2019 Overview (06/19/2016): Colonoscopy 06/2016 normal repeat in 10 years Major depression, recurrent 09/28/2013 09/13/2015 Anxiety state, unspecified 03/10/2013 0 09/28/2013 Encounters Date Type Department Care Team Description 12/26/2023 1:15 PM DEDICATED REGIONAL DRIVER Office Visit [facility] [address] [facility] [address] [place] [address] Kelton Modi MD Hand Injury (Right hand pain) 12/26/2023 Travel 12/24/2023 Travel 12/19/2023 3:00 PM CDT Telemedicine [facility] [address] [facility] [address] [place] [address] Claire Medrano PsyD, KARAN Individual Therapy; Telehealth 12/16/2023 3:45 PM CDT Nurse/Clinic Staff Only [facility] [address] [place] [address] Immunization/Injection (COVID-19 AND FLU VACCINES ); Immunization/Injection 12/15/2023 Travel 12/04/2023 2:05 PM CDT Office Visit [facility] [address] [place] [address] Usman Mayes MD Follow Up 12/03/2023 Travel 11/28/2023 4:00 PM CDT Telemedicine [facility] [address] [facility] [address] [place] [address] Claire Medrano PsyD, LP Individual Therapy; Telehealth 11/26/2023 Orders Only [facility] [address] [place] [address] Usman Mayes MD 1 scan: (1-Ord) [facility] 11/26/2023 Telephone [facility] [address] [place] [address] Usman Mayes MD Other 11/25/2023 Telephone [facility] [address] [facility] [place] [address] Usman Mayes MD EMG results and hand surgeon 11/24/2023 Travel 11/20/2023 1:40 PM CDT Office Visit [facility] [address] [facility] [place] [address] Usman Mayes MD Follow Up (Urgent Care, 11/18/2023, arm pain/problem, numbness) 11/19/2023 Travel 11/14/2023 3:00 PM CDT Telemedicine [facility] [address] [facility] [address] [place] [address] Claire Medrano PsyD LP Individual Therapy; Telehealth 11/13/2023 Travel 11/12/2023 Telephone [facility] [address] [place] [phone] Lino Lai MD Medication Management 11/06/2023 Telephone [facility] [address] [place] [address] Lino Lai MD Prior Authorization (Nurtec ODT 75 mg orally disintegrating tablet - APPROVED 11/27/2023 - 11/26/2024) 11/05/2023 Telephone [facility] [place] [address] [place] [address] Lino Lai MD Medication Management (Nurtec ODT 75 mg orally disintegrating tablet prior auth) 10/30/2023 4:00 PM CDT Telemedicine [facility] [address] [place] [address] Claire Medrano PsyD, LP Individual Therapy; Telehealth 10/28/2023 3:00 PM CDT Office Visit [facility] [address] [place] [address] Anh Lazo NP Medication Management (Things could be better) 10/28/2023 Travel 10/26/2023 Travel 10/25/2023 11:20 AM CDT Office Visit [facility] [address] [place] [address] Steve Vicente MD Musculoskeletal Problem (Follow up right shoulder pain, review MRI and possible injection) 10/25/2023 Travel 10/16/2023 3:20 PM CDT Office Visit [facility] [address] [place] [address] Usman Mayes MD Follow Up (Blood work); Numbness (Right fingers tingling ) 10/16/2023 Travel 10/16/2023 Telephone [facility] [address] [place] [address] Steve Vicente MD Results 10/15/2023 11:00 AM CDT - 10/15/2023 11:59 PM CDT Hospital Encounter [facility] [address] [place] [address] Steve Vicente MD Calcific tendonitis of right shoulder; Chronic right shoulder pain; Impingement syndrome of right shoulder; Arthritis of right acromioclavicular joint 10/14/2023 9:45 AM CDT Orders Only [facility] [address] [place] [address] Lab, [place] Lab 10/14/2023 Travel 10/10/2023 4:00 PM CDT Telemedicine [facility] [address] [facility] [address] [place] [address] Claire Medrano PsyD, LP Individual Therapy; Telehealth (/) 10/09/2023 4:00 PM CDT Ancillary Procedure [facility] [address] [place] [address] 10/09/2023 3:00 PM CDT Office Visit [facility] [address] [place] [address] Steve Vicente MD Musculoskeletal Problem (Follow up right shoulder pain) 10/09/2023 Travel 10/05/2023 Travel 09/27/2023 Refill [facility] [address] [place] [address] Anh Lazo NP Refill Request (Hydroxyzine Hcl) from Last 3 Months Immunizations Name Administration Dates Next Due AMB Influenza, IIV4 PF (=>6 mos Flulaval,Fluzone Fluarix)(Flu Clinic Only) 12/07/2019 COVID-19 VACCINE SPIKEVAX (M ODERNA 50MCG/0.5ML) 12YO+ PFS 12/16/2023,02/19/2023 COVID-19 vaccine (Loopd Via-Bio NTech 30mcg/0.3mL) 12YO+ AMINA-SUCROSE PF, MDV 06/07/2021 COVID-19 vaccine (Loopd Via-Bio NTech 30mcg/0.3mL) PF, MDV 12/12/2020,06/07/2020,05/17/2020 INFLUENZA, IIV3 PF (AGE >= 6 MO) 12/16/2023 Influenza, IIV3 (Age >=3 years) 03/10/2013 Influenza, IIV4 11/23/2022,,12/12/2020,11/03/19 14 Tdap 03/10/2013 Family History Medical History Relation Name Comments Dementia Father Other Father d83 likely [place] Diabetes Maternal Grandmother Heart Disease Neg. 1 Cancer-colon Neg. 2 Cancer-prostate Neg. 3 Cancer Paternal Grandmother Lung ca ncer Diabetes Paternal Grandmother Relation Name Status Comments Father Maternal Grandmother Neg. 1 Neg. 2 Neg. 3 Paternal Grandmother Social History Tobacco Use Types Packs/Day Years Used Date Smoking Tobacco: Never Smokeless Tobacco: Never Tobacco Cessation:Counseling Given: No Alcohol Use Standard Drinks/Week Comments Not Currently 0 (1 standard drink = 0.6 oz pur e alcohol) PHQ-2 Answer Date Recorded PHQ-2 TOTAL SCORE 5 12/18/2023 Social Connections Answer Date Recorded Do you often feel lonely or isolated from those around you? 4 06/18/2023 Alcohol Use Answer Date Recorded How often do you have a drink containing alcohol ? 1 02/07/2021 How many drinks containing a lcohol do you have on a typical day when you are drinking? 0 02/07/2021 How often do you have five or more drinks on one occasion? 0 02/07/2021 Financial Resource Strain Answer Date R ecorded Difficulty of Paying Living Expenses 2 06/18/2023 Difficulty of Paying Living Expenses 1 06/18/2023 Food Insecurity Answer Date Recorded Do you worry your food will run out before you are able to buy more? 2 06/18/2023 Transportation Needs Answer Date Record ed Does lack of transportation keep you from medica l appointments? 2 06/18/2023 Does lack of transportation keep you from work, meetings or getting things that you need? 2 06/18/2023 Housing Stability Answer Date Recorded What is your housing situation today? 1 06/18/2023 Sex and Gender Information Value Date Recorded Sex Assigned at Male 05/25/2021 6:18 PM CDT Gender Identity Male 04/25/2020 4:09 PM DEDICATED REGIONAL DRIVER Sexual Orientation Lesbian or Tovar 04/25/2020 4: 09 PM DEDICATED REGIONAL DRIVER Obstetrics History Last Filed Vital Signs Vital Sign Reading Time Taken Comments Blood Pressure 121/72 12/04/2023 2:06 PM CDT Pulse 61 12/04/2023 2:06 PM CDT Temperature 36.5 ??C (97.7 ??F) 10/25/2023 1 1:30 AM CDT Respiratory Rate 12 11/05/2022 2:37 PM CDT Oxygen Saturation 98% 12/04/2023 2:06 PM CDT Inhaled Oxygen Concentration - - Weight 125.6 kg (276 lb 12.8 oz) 12/04/2023 2:06 PM CDT Height 177.1 cm (5' 9.72) 07/16/2023 1 1:00 AM CDT Body Mass Index 40.04 07/16/2023 11:00 AM CDT Plan of Treatment Upcoming Encounters Date Type Department Care Team (Late st Contact Info) Description 01/01/2024 3:00 PM DEDICATED REGIONAL DRIVER Telemedicine [facility] [address] [place] [address] Claire Medrano, JeremiahyD, LP [address] [place] [address] 01/03/2024 8:30 AM DEDICATED REGIONAL DRIVER Orders Only [facility] [address] [place] [address] Lab, [place] 01/15/2024 3:00 PM DEDICATED REGIONAL DRIVER Telemedicine [facility] [address] [place] [address] Claire Medrano PsyD, LP [address] [place] [address] 01/20/2024 1:40 PM DEDICATED REGIONAL DRIVER Office Visit [facility] [address] [place] [address] Steve Vicente MD [address] [place] [address] 01/27/2024 3:00 PM DEDICATED REGIONAL DRIVER Office Visit [facility] [address] [place] [address] Anh Lazo NP [address] [place] [address] 02/03/2024 3:00 PM DEDICATED REGIONAL DRIVER Telemedicine [facility] [address] [place] [address] Mitchell, Claire A, PsyD, LP [address] [place] [address] 02/21/2024 3:00 PM DEDICATED REGIONAL DRIVER Telemedicine [facility] [address] [place] [address] Mitchell, Claire A, PsyD, LP [address] [place] [address] 02/27/2024 3:00 PM DEDICATED REGIONAL DRIVER Office Visit [facility] [address] [facility] [address] [place] [address] Aide Thomas, DASH [address] [place] [address] [address] [place] [address] 03/12/2024 3:00 PM DEDICATED REGIONAL DRIVER Telemedicine [facility] [address] [place] [address] Mitchell, Claire A, PsyD, LP [address] [place] [address] 03/24/2024 9:30 AM DEDICATED REGIONAL DRIVER Orders Only [facility] [address] [place] [address] Lab, [place] 03/26/2024 3:00 PM DEDICATED REGIONAL DRIVER Telemedicine [facility] [address] [place] [address] Mitchell, Claire A, PsyD, LP [address] [place] [address] 03/27/2024 2:55 PM DEDICATED REGIONAL DRIVER Office Visit [facility] [address] [place] [address] Usman Mayes MD [address] [place] [address] 04/08/2024 3:00 PM DEDICATED REGIONAL DRIVER Telemedicine [facility] [address] [place] [address] Mitchell, Claire A, PsyD, LP [address] [place] [address] 04/23/2024 2:00 PM DEDICATED REGIONAL DRIVER Telemedicine [facility] [address] [place] [address] Mitchell, Claire A, PsyD, LP [address] [place] [address] 05/07/2024 3:00 PM CDT Telemedicine [facility] [address] [place] [address] Mitchell, Claire A, PsyD, LP [address] [place] [address] 05/21/2024 3:00 PM CDT Telemedicine [facility] [address] [place] [address] Mitchell, Claire A, PsyD, LP [address] [place] [address] Health Maintenance Due Date Last Done Comments Zoster (shingles) series for age 50+ (1 of 2) 2014 Tetanus booster 03/10/2023 03/10/2013 BMI (ht and wt on same day) for age 18+ 07/15/2024 07/16/2023, 03/22/2023, 05/03/2022, Additional history exists Depression screening for age 12+ 12/18/2024 12/19/2023, 12/18/2023, 11/14/2023, Additional history exists Colonoscopy through age 75 06/19/202606/19, 06/19/2016, 06/19/2016 Lipids for age 45-75 03/19/2028 03/19/2023, 03/19/2022, 03/08/2021, Additional history exists Tdap Completed 03/10/2013 Hepatitis C screening for age 18-79 Completed 03/03/2019 HIV for age 15-65 Completed 06/19/2023 COVID-19 vaccine series Completed 12/16/19, 02/19/2023, 11/17/2021, Additional history exists Influenza for age 50-64 Completed 12/16/19, 11/23/2022, 10/30/2021, Additional history exists Pneumococcal series for age 6-64 Aged Out No longer eligible based on patient's age to complete this topic Procedures Procedure Name Priority Date/Time Associated Diagnosis Comments EMG Routine 11/22/2023 12:00 AM CDT Paresthesia MR SHOULDER RIGHT WO Routine 10/15/2023 12:08 PM CDT Calcific tendonitis of right shoulder Chronic right shoulder pain Impingement syndrome of right shoulder Arthritis of right acromioclavicular joint HEMOGLOBIN A1C Routine 10/14/2023 9:47 AM CDT Impaired fasting glucose GLUCOSE, FASTING Routine 10/14/2023 9:47 AM CDT Impaired fasting glucose XR SHOULDER 3 VIEWS RIGHT Routine 10/09/2023 4:01 PM CDT Calcific tendonitis of right shoulder Chronic right shoulder pain Impingement syndrome of right shoulder Arthritis of right acromioclavicular joint ANTI HIV 1/2 Routine 06/19/2023 4:09 PM CDT Screening for human immunodeficiency virus LIPID PANEL W REFLEX MEASURED LDL Routine 03/19/2023 12:00 PM DEDICATED REGIONAL DRIVER Hyperlipidemia, unspecified hyperlipidemia type ANTI HCV Routine 03/03/2019 12:46 PM DEDICATED REGIONAL DRIVER Need for hepatitis C screening test COLONOSCOPY 06/19/2016 8:31 AM CDT from Last 3 Months or Most Recently Relevant to Health Maintenance Results * EMG (11/22/2023 12:00 AM CDT) Usman Mayes MD NEUROLOGY ORD * MR SHOULDER RIGHT WO (10/15/2023 12:08 PM CDT) Anatomical Region Laterality Modality SHOULDER R Magnetic Resonan ce 10/15/2023 3:03 PM CDT Impressions 10/15/2023 3:03 PM CDT 1. Calcific supraspinatus tendonitis and subacromial subdeltoid bursitis. Although the volume of calcification has slightly decreased, the adjacent edema has increased. 2. Stable infraspinatus tendinopathy. 3. Advanced arthropathy in the acromioclavicular joint. Dictated by Steve Cisneros MD @ 10/15/2023 3:03:03 PM (Electronically Signed) Narrative 10/15/2023 3:03 PM CDT For Patients: ??As a result of the Cures Act, medical imaging exams and procedure reports are released immediately into your electronic medical record. ??You may view this report before your referring provider. ??If you have questions, please contact your health care provider. EXAM: MRI OF THE RIGHT SHOULDER WITHOUT CONTRAST CLINICAL INDICATION: Persistent shoulder pain. Calcific tendinitis. COMPARISON PLAIN FILMS: 10/09/2023. COMPARISON CROSS-SECTIONAL IMAGING STUDIES: 05/13/2023 MRI. TECHNICAL: Axial, sagittal oblique and coronal oblique T1, PD, PD FS and T2-weighted images. Shoulder surface coil. FINDINGS: ROTATOR CUFF TENDONS AND MUSCLES AND DELTOID: Supraspinatus: Cluster of calcifications in the anterior and distal aspect of the supraspinatus tendon. The overall volume of calcifications have slightly decreased in the interval with thinning of the calcification cluster. Mild edema in the supraspinatus tendon has increased. Fluid and edema in the subacromial subdeltoid bursa have increased. Findings consistent with calcific tendinitis and bursitis. No supraspinatus tendon tear. Infraspinatus: Mild tendinopathy. No tendon tear. No muscle atrophy or edema. Subscapularis: No tendinosis, tendon tearing, muscle atrophy or muscle edema. Teres Minor: No tendinosis, tendon tearing, muscle atrophy or muscle edema. Deltoid: No muscle atrophy or edema. BURSA: Subacromial-subdeltoid: Increased fluid and edema in the subacromial subdeltoid bursa consistent with bursitis. BICEPS TENDON, LONG HEAD: The long head of the biceps tendon is appropriately positioned within the bicipital groove without tendon subluxation or dislocation. ??The biceps dory mechanism is intact. ??The biceps anchor appears grossly intact. ??There is no significant tendinosis or tendon tearing. CORACOACROMIAL ARCH: Acromial Morphology: Type 1 acromial morphology. No abnormal lateral or anterior downward sloping of the acromion. No significant subacromial spur. ??No os acromiale. Acromiohumeral Interval: Normal. ?? Coracohumeral Interval: Normal. ?? ACROMIOCLAVICULAR JOINT REGION: AC Joint: Advanced arthropathy with juxta-articular edema and capsular thickening remain unchanged. Ligaments: The coracoclavicular ligaments are intact. GLENOHUMERAL JOINT: Joint space: No effusion or synovitis. Humeral Head Articular Cartilage: No focal cartilage defect or underlying subchondral marrow changes. Glenoid Articular Cartilage: No focal cartilage defect or underlying subchondral marrow changes. Labrum: No labral tear or paralabral cyst. Alignment: Maintained. Capsule: No capsular edema or abnormal capsular thickening. OSSEOUS STRUCTURES: No fracture, marrow edema or marrow replacement process. OTHER FINDINGS: There is no abnormality within the suprascapular or spinoglenoid notches nor within the quadrilateral space. ??No axillary adenopathy or mass. Procedure Note Steve Cisneros MD - 10/15/2023 For Patients: As a result of the Cures Act, medical imagingexams and procedure reports are released immediately into your electronicmedical record. You may view this report before your referring provider.If you have questions, please contact your health care provider. EXAM: MRI OF THE RIGHT SHOULDER WITHOUT CONTRAST CLINICAL INDICATION: Persistent shoulder pain. Calcific tendinitis. COMPARISON PLAIN FILMS: 10/09/2023. COMPARISON CROSS-SECTIONAL IMAGING STUDIES: 05/13/2023 MRI. TECHNICAL: Axial, sagittal oblique and coronal oblique T1, PD, PD FS and T2-weightedimages. Shoulder surface coil. FINDINGS: ROTATOR CUFF TENDONS AND MUSCLES AND DELTOID: Supraspinatus: Cluster of calcifications in the anterior and distal aspectof the supraspinatus tendon. The overall volume of calcifications haveslightly decreased in the interval with thinning of the calcificationcluster. Mild edema in the supraspinatus tendon has increased. Fluid andedema in the subacromial subdeltoid bursa have increased. Findingsconsistent with calcific tendinitis and bursitis. No supraspinatus tendontear. Infraspinatus: Mild tendinopathy. No tendon tear. No muscle atrophy oredema. Subscapularis: No tendinosis, tendon tearing, muscle atrophy or muscleedema. Teres Minor: No tendinosis, tendon tearing, muscle atrophy or muscleedema. Deltoid: No muscle atrophy or edema. BURSA: Subacromial-subdeltoid: Increased fluid and edema in the subacromialsubdeltoid bursa consistent with bursitis. BICEPS TENDON, LONG HEAD: The long head of the biceps tendon is appropriately positioned within thebicipital groove without tendon subluxation or dislocation. The bicepspulley mechanism is intact. The biceps anchor appears grossly intact.There is no significant tendinosis or tendon tearing. CORACOACROMIAL ARCH: Acromial Morphology: Type 1 acromial morphology. No abnormal lateral oranterior downward sloping of the acromion. No significant subacromialspur. No os acromiale. Acromiohumeral Interval: Normal. Coracohumeral Interval: Normal. ACROMIOCLAVICULAR JOINT REGION: AC Joint: Advanced arthropathy with juxta-articular edema and capsularthickening remain unchanged. Ligaments: The coracoclavicular ligaments are intact. GLENOHUMERAL JOINT: Joint space: No effusion or synovitis. Humeral Head Articular Cartilage: No focal cartilage defect or underlyingsubchondral marrow changes. Glenoid Articular Cartilage: No focal cartilage defect or underlyingsubchondral marrow changes. Labrum: No labral tear or paralabral cyst. Alignment: Maintained. Capsule: No capsular edema or abnormal capsular thickening. OSSEOUS STRUCTURES: No fracture, marrow edema or marrow replacement process. OTHER FINDINGS: There is no abnormality within the suprascapular or spinoglenoid notchesnor within the quadrilateral space. No axillary adenopathy or mass. IMPRESSION: 1. Calcific supraspinatus tendonitis and subacromial subdeltoid bursitis.Although the volume of calcification has slightly decreased, the adjacentedema has increased. 2. Stable infraspinatus tendinopathy. 3. Advanced arthropathy in the acromioclavicular joint. Dictated by Steve Cisneros MD @ 10/15/2023 3:03:03 PM (Electronically Signed) Steve Vicente MD MR * HEMOGLOBIN A1C SCREENING (10/14/2023 9:47 AM CDT) HEMOGLOBIN A1C SCREENING 6.3 <=6.4 % 10/14/2023 5:19 PM CDT [facility] Blood BLOOD SPECIMEN / Unknown Venipuncture / Unknown 10/14/2023 9:47 AM CDT 10/14/2023 9:49 AM CDT Narrative [facility] - 10/14/2023 5:19 PM CDT ? (<5.7%) ?Normal ? (5.7% to 6.4%) ? Indicates prediabetes ? (>=6.5%) ? Confirms diabetes Falsely low levels may be seen with: Recent Transfusion, Recent Significant Blood Loss, Hemolytic Diseases, or Falsely elevated levels may be seen with: Untreated Anemias, Splenectomy Usman Mayes MD CHEMISTRY [facility] [address] [place] [address], [place] * (ABNORMAL) GLUCOSE, FASTING (10/14/2023 9:47 AM CDT) GLUCOSE 117(H) 70 - 99 mg/dL 10/14/2023 9:57 AM CDT [facility] Blood BLOOD SPECIMEN / Unknown Venipuncture / Unknown 10/14/2023 9:47 AM CDT 10/14/2023 9:49 AM CDT Usman Mayes MD CHEMISTRY [facility] [address] [place] [address], * XR SHOULDER 3 VIEWS RIGHT (10/09/2023 4:01 PM CDT) Anatomical Region Laterality Modality SHOULDERS, SHOULDER R Computed R adiography 10/10/2023 2:27 PM CDT Impressions 10/10/2023 2:27 PM CDT 1. Moderate to severe calcific tendinitis of the distal rotator cuff is noted without interval change. Dictated by Javier Okeefe MD @ 10/10/2023 2:27:10 PM Dictated by: Javier Okeefe MD @ 10/10/2023 14:27:16 (Electronically Signed) Narrative 10/10/2023 2:27 PM CDT For Patients: ??As a result of the Cures Act, medical imaging exams and procedure reports are released immediately into your electronic medical record. ??You may view this report before your referring provider. ??If you have questions, please contact your health care provider. INDICATION: Calcific tendonitis of right shoulder, Chronic right shoulder pain, Impingement syndrome of right shoulder, Arthritis of right acromioclavicular joint TECHNIQUE: Shoulder radiograph 4 views right COMPARISON: 02/28/2023 FINDINGS: Bone: No acute fractures or aggressive bone lesions are identified. Joint: The glenohumeral joint is unremarkable. 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 Soft tissue: Unremarkable. The visualized hemithorax is unremarkable in appearance. No radiopaque foreign bodies are seen. Moderate to severe calcific tendinitis of the distal rotator cuff is noted without interval change. Procedure Note Javier Okeefe MD - 10/10/2023 For Patients: As a result of the Century Cures Act, medical imagingexams and procedure reports are released immediately into your electronicmedical record. You may view this report before your referring provider.If you have questions, please contact your health care provider. INDICATION: Calcific tendonitis of right shoulder, Chronic right shoulderpain, Impingement syndrome of right shoulder, Arthritis of rightacromioclavicular joint TECHNIQUE: Shoulder radiograph 4 views right COMPARISON: 02/28/2023 FINDINGS: Bone: No acute fractures or aggressive bone lesions are identified. Joint: The glenohumeral joint is unremarkable. The acromioclavicular jointhas mild osteoarthritis. Soft tissue: Unremarkable. The visualized hemithorax is unremarkable inappearance. No radiopaque foreign bodies are seen. Moderate to severecalcific tendinitis of the distal rotator cuff is noted without intervalchange. IMPRESSION: 1. Moderate to severe calcific tendinitis of the distal rotator cuff isnoted without interval change. Dictated by Javier Okeefe MD @ 10/10/2023 2:27:10 PM Dictated by: Javier Okeefe MD @ 10/10/2023 14:27:16 (Electronically Signed) Steve Vicente MD GENERAL IMAGING * ANTI HIV 1/2 (06/19/2023 4:09 PM CDT) HIV-1/HIV-2 SCREEN Non-Reacti ve Non-Reacti ve 06/20/2023 1:02 PM CDT [facility] Comment:HIV-1 p24 and HIV-1/ HIV-2 Ab Not Detected. Blood BLOOD SPECIMEN / Unknown Venipuncture / Unknown 06/19/2023 4:09 PM CDT 06/19/2023 4:11 PM CDT Usman Mayes MD SEND OUTS [facility] [address] [place] [address], [place] * (ABNORMAL) LIPID PANEL W REFLEX MEASURED LDL (03/19/2023 12:00 PM [facility]) CHOLESTEROL,TOTAL 169 100 - 199 mg/dL 03/20/2023 10:00 AM [facility] Comment: Cholesterol, Total Reference Ranges Desirable <200 mg/dL Borderline 200-239 mg/dL High >=240 mg/dL TRIGLYCERIDES 188(H) <150 mg/dL 03/20/2023 10:00 AM [facility] [facility] HDL CHOLESTEROL 49 >40 mg/dL 10:00 AM [facility] NON-HDL CHOLESTEROL 120 <145 mg/dl 03/20/2023 10:00 AM [facility] [facility] CHOL/HDL RATIO 3.45 <4.50 03/20/2023 10:00 AM [facility] [facility] LDL CHOLESTEROL 82 <=130 mg/dL 03/20/2023 10:00 AM [facility] [facility] VLDL CHOLESTEROL 38(H) <=30 mg/dL 03/20/2023 10:00 AM [facility] PROVIDER ORDERED STATUS RANDOM 03/20/2023 10:00 AM [employer] [facility] Blood BLOOD SPECIMEN / Unknown Venipuncture / Unknown 03/19/2023 12:00 PM [employer]IVER 03/19/2023 12:04 PM [employer] Usman Mayes MD CHEMISTRY [facility] [address] [place] [id number], * ANTI HCV (03/03/2019 12:46 PM [facility] DRIVER) HEPATITIS C ANTIBODY Non-React chris Non-React chris 03/03/2019 6:16 PM [employer] [facility] Comment:Antibodies to HCV no t detected; does not exclude the possibility of exposure to HCV. Blood BLOOD SPECIMEN / Unknown Butterfly / Unknown 03/03/2019 12:46 PM [employer] 03/03/2019 12:46 PM [employer] DRIVER Usman Mayes MD SEND OUTS [facility] [address] [place] [address], * COLONOSCOPY (06/19/2016 8:31 AM CDT) 06/19/2016 8:31 AM CDT Narrative Transcriptions Robbin Sin MD - 06/19/2016 9:26 AM CDT Patient Name: Jacoby Chapa Procedure Date: 06/19/2016 Gender: Male Date of : 1965 Admit Type: Outpatient Procedure: Colonoscopy Proceduralist: Robbin Sin MD , Ivone Mathur (Nurse) Referring MD: Usman Mayes Indications/Pre-Op Diagnosis: This is the patient's first colonoscopy,Heme positive stool Medications: Fentanyl 100 micrograms IV, Midazolam 4 mgIV, The level of sedation administered wasmoderate Procedure Description: The patient had risks, benefits and alternatives explained to andgave informed consent. The patient had a stable cardiopulmonary status and judged an adequate candidate for conscious sedation. The [id number] was passed through the anus and advanced tothe cecum, identified by appendiceal orifice and ileocecal valve. The colonoscopy was performed without difficulty. The patient toleratedthe procedure well. The quality of the bowel preparation was good. The ileocecal valve, appendiceal orifice, and rectum were photographed. Complications: No immediate complications. Estimated Blood Loss & Specimen: Estimated blood loss: none. Specimen collected - None Findings: The perianal and digital rectal examinations were normal. The entire examined colon appeared normal on direct and retroflexion views. Impressions/Post-Op Diagnosis: - The entire examined colon is normal on direct and retroflexionviews. - No specimens collected. Recommendation: - Patient has a contact number available for emergencies. The signsand symptoms of potential delayed complications were discussed with the patient. Return to normal activities tomorrow. Written discharge instructions were provided to the patient. - Resume previous diet. - Continue present medications. - Repeat colonoscopy in 10 years for screening purposes. Moderate Sedation: Moderate (conscious) sedation was administered by the endoscopy nurse and supervised by the endoscopist. The following parameters were monitored: oxygen saturation, heart rate, respiratory rate, blood pressure, adequacy of pulmonary ventilation and reponse to care. [facility] flow[facility]ets and nursing notes for moderate sedation details. Total physician intraservice time was 18 minutes. Robbin Sin MD 06/19/2016 9:26:00 AM This report has been signed electronically. Note Initiated On: 06/19/2016 8:31 AM Procedure Code(s): --- Professional --- 58753, Colonoscopy, flexible; diagnostic, including collection of specimen(s) bybrushing or washing, when performed (separateprocedure) Diagnosis Code(s): --- Professional --- R19.5, Other fecal abnormalities CPT copyright 2016 [employer]. All rights reserved. The codes documented in this report are preliminary and upon zigzag machine operator reviewmay be revised to meet current compliance requirements. Scope In: 9:05:02 AM Scope Withdrawal Time 0 hours 9 minutes 26 seconds Scope Out: 9:20:28 AM Robbin Sin MD PROCEDURE ORD from Last 3 Months or Most Recently Relevant to Health Maintenance Care Teams Hotel Sales Manager Relationship Specialty Start Date End Date Usman Mayes MD [address] [place] [address] PCP - General Family Practice 03/16/13 Claire Medrano PsyD, LP [address] [facility] [address] [facility] [address] [place] [address] Mental Health Provider Psychology 05/13/19 Anh Lazo NP [address] [place] [address] Psychiatry Nurse Practitioner 04/27/20 Юляи Boyle MD [address] [facility] [address] [place] [address] Rheumatology 11/05/22
[2023-12-27 03:31] VITALS: BP 132/90; PULSE 74; RESP 16; O2SAT 98
== END 2023-12-27 03:30 | disposition home or self-care (01) ==
PROVIDERS: Emergency Provider Internal Medicine; PCP Family Medicine
DX: I10 Essential (primary) hypertension (principal)
CPT/HCPCS: 99283

== ENCOUNTER 2024-06-19 13:00 | Outpatient (RCR) | payer BC, SELFPAY ==
--- NOTE | 2024-05-01 17:10 | PT.OPEX ---
PT [place] Outpatient Eval PT [facility] Outpatient Eval Start: 05/01/24 13:06 Freq: Status: Active Protocol: Document 05/01/24 13:06 PATRICIA (Rec: 05/01/24 17:05 PATRICIA [id number]) E-signed By Deidre Duke DPT Physical Therapy Outpatient Evaluation Insurance Information Recert Due Date 07/30/24 Insurance Name Medicaid Medical Diagnosis mechanical back pain Treating Diagnosis UBN pain, shoulder pain, mid/ low back pain, impaired posture Subjective Subjective Patient c/o UBN and shoulder pain with lying on his back. He reports having increased pain in this position, makes it difficult for him to do any bench press exercises. Sleep is interrupted at times but patient reports sleeping on his side, uses a c-pap machine . Patient reports having a [employer] membership but he hasn't been working out lately due to being sick over the last 3 weeks or so. He is hoping to get back to the gym soon. Patient reports having some prior PT for his LB and he is doing his exercises at home. These seem to be helping. He denies any recent injury, trauma to his back/neck/ shoulders. Pain range 0-6/10. He denies pain at rest. Main c/o pain is with lying supine. He is using tylenol as needed. Warm shower feels good. 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 Pain range 0-6/10. Patient's main c/o mid/low back pain and UBN/shoulder pain when lying supine. Patient with impaired posture, forward head, rounded shoulders. He demonstrated supine position this session and with pillow support he denies increased UBN/shoulder pain. Patient removed the pillows and reports increased pain in UBN/shoulder region. Without pillow support patient 's head is dropping back, resulting in increased stress to his spine. Recommended he have head support in this position to improve spine position/support. He reports decreased stress to his LB with his knees bent. Patient wanting to have a comfortable position for his bench press exercises. Recommend he get a small pillow or towel support to use and to get his knees supported up/bent on a stool or possibly on a dumbbell wt on the floor. Patient shown these positions in clinic today, he expresses understanding. With these modifications, patient denies pain in supine position. Bilateral shoulder AROM WFL. Cervical AROM WFL with tightness reported with rotation R/L. Patient with core/trunk/UBN weakness with hx of chronic UBN and mid/low back pain. Able to initiate HEP this session. Patient would benefit from skilled PT for pain/sx management, posture/body mechanics training, core/trunk/UBN strengthening, and establishment of HEP. Plan of Care Rehabilitation Potential Good Physical Therapy Goals 1. Decrease UBN and mid/low back pain to less than/equal to 3/10 with daily/workout activities and with the progression of PT activities over the next 6-8 weeks. 2. Patient will be educated on posture/body mechanics and pain management strategies over the next 6-8 weeks for decreased stress on mid-low back and UBN for decreased mid/low back and UBN pain. 3. Improve core/hip/glut/ trunk strength and posture over the next 6-8 weeks for improved posture, decreased stress on LB/UBN, decreased LBP/UBN pain, and improved tolerance for extended sitting/standing/ walking for daily activities. 4. Patient will be I with HEP within 8 weeks for progression toward above goals, ongoing self management of pain/sx, ongoing self improvements in core/hip/glut/trunk strength, posture/body mechanics, and for improved tolerance for extended sitting /standing/walking activities and return to PLF with daily activities without flare up of pain. Coordination/Communication With Referral Source Treatment Plan/Direct Interventions Manual Therapy,Therapeutic Exercises Frequency/Duration 1x/week Patient Will Be Discharged From Therapy Completion of LTG(s),Skills Plateau,Independent w/HEP, Independently Progressing Evaluation Billing Untimed Code Treatment Minutes 32 Complexity Moderate Certification Information Initial Certification Date 05/01/24 Ending Certification Date 07/30/24 Provider Signature Required Yes Provider Signature Shows Agreement With POC & Medical Necessity Physician NPI Number Write NPI# Here Physician Comment/Change : Physician Signature & Date Requested Please Sign/Date Here
== END 2024-10-17 23:59 | disposition home or self-care (01) ==
PROVIDERS: PCP Family Medicine; Visit Provider Family Medicine
DX: M54.9 Dorsalgia, unspecified (principal); Z51.89 Encounter for other specified aftercare
CPT/HCPCS: 97110; 97162